=== PATIENT | male | born 1975 | race Caucasian/White ===

== ENCOUNTER 2023-10-11 10:33 | Day surgery (SDC) | payer OTHER ==
[2023-10-11] MEDS: LACTATED RINGERS 1,000 ML IV ONE (10:40)
--- NOTE | 2023-10-11 12:33 | ANESTHESIA ---
Pre-Anesthesia VS, & Labs - Diagnosis screening - Procedure colonoscopy Vital Signs: Temp Pulse Resp BP Pulse Ox O2 Flow Rate 36.6 C 68 17 142/86 H 97 10/11/23 10:58 10/11/23 10:58 10/11/23 10:58 10/11/23 10:58 10/11/23 10:58 Height: 5 ft 11 in Weight (kg): 70.4 kg Body Mass Index: 21.6 BMI Classification: Normal - NPO >8 hours Home Medications and Allergies Latanoprost 0.005% Ophth Drops [Xalatan Ophth Drops] 1 drops EACHEYE DAILY 12/16/21 Allergies/Adverse Reactions: Allergies Allergy/AdvReac Type Severity Reaction Status Date / Time No Known Drug Allergies Allergy Verified 10/11/23 10:54 Anes History & Medical History - Anesthetic History Anesthesia Complications: reports: No previous complications Family history of Anesthesia Complications: Denies Family history of Malignant Hyperthermia: Denies - Medical History Cardiovascular: reports: None Pulmonary: reports: None Gastrointestinal: reports: Colon polyps Urinary: reports: None Neuro: reports: None Musculoskeletal: reports: None Endocrine/Autoimmune: reports: None Skin: reports: None Smoking Status: Never smoker Psychosocial: reports: No issues indicated History of Cancer?: No - Surgical History General: reports: Colonoscopy Eyes Ears Nose Throat (EENT): reports: Other Gynecologic: reports: Other Exam General: Alert, Oriented x3, Cooperative Dental: WNL Mouth Openin Fingerbreadth Neck Mobility: Normal Mallampati classification: I Thyromental Distance: 4-6 cm Respiratory: Lungs clear Cardiovascular: Regular rate Abdomen: Normal bowel sounds Extremities: No clubbing Neurological: Normal gait Mental/Cognitive Status: Alert/Oriented X3 Cognitive Status: Within normal limits Plan Anesthesia Type: Total IV Consent for Procedure(s) Verified and Reviewed: Yes Code Status: Attempt Resuscitation ASA classification: 2-Mild systemic disease Is this case an emergency?: No
--- NOTE | 2023-10-11 12:57 | HISTORY & PHYSICAL EXAMINATION ---
Chief Complaint - Chief Complaint Chief Complaint: here for colonoscopy History of Present Illness - History Obtained From Records Reviewed: yes History obtained from: pt Exam Limitations: none - History of Present Illness HPI Comment/Other: here for colonoscopy for screening. no gi problems or fhx colon ca. 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 HEENT: reports: Other Meds/Allgy - Home Medications Home Medications: Ambulatory Orders Medication Instructions Recorded Confirmed Latanoprost 0.005% Ophth Drops 1 drops EACHEYE DAILY 12/16/21 10/11/23 [Xalatan Ophth Drops] - Allergies Allergies/Adverse Reactions: Allergies Allergy/AdvReac Type Severity Reaction Status Date / Time No Known Drug Allergies Allergy Verified 10/11/23 10:54 Review of Systems - Other Findings Other Findings: 10 pt ros as above otherwise unremarkable Exam - Vital Signs Vital Signs: Vital Signs x48h Temp Pulse Resp BP Pulse Ox 10/11/23 10:58 36.6 C 68 17 142/86 H 97 - Physical Exam General Appearance: positive: No acute distress, Alert Eyes Bilateral: positive: PERRL, EOMI ENT: positive: No signs of dehydration Neck: positive: No JVD, Trachea midline Respiratory: positive: No respiratory distress Cardiovascular: positive: Regular rate & rhythm Abdomen: positive: No distention Neurologic/Psychiatric: positive: Oriented x3 Conclusion/Plan - Problem List (1) Colon cancer screening Conclusion/Plan: plan colonoscopy. parq held and consent obtained
[2023-10-11] MEDS ORDERED: PROPOFOL 500 MG/50 ML 500 MG/50 ML VIAL ONE (13:04)
[2023-10-11] MEDS ORDERED: MIDAZOLAM 2 MG/2 ML VIAL ONE (13:04)
[2023-10-11] MEDS: LACTATED RINGERS 100 ML IV ONE (13:36)
[2023-10-11 13:51] VITALS: BP 118/65; O2SAT 98
--- NOTE | 2023-10-11 15:49 | ANESTHESIA POST OP EVALUATION ---
Anesthesia Post Eval - Post Anesthesia Eval Vitals: Last Vital Signs Temp 36.5 C 10/11/23 13:34 Pulse 63 10/11/23 13:45 Resp 14 10/11/23 13:45 BP 118/65 10/11/23 13:45 Pulse Ox 98 10/11/23 13:45 O2 Flow Rate CV Function Including HR & BP: Stable Pain Control: Satisfactory Nausea & Vomiting: Negative Mental Status: Baseline Respiratory Status: Airway Patent Hydration Status: Satisfactory Anesthesia Complications: None
== END 2023-10-11 10:34 | disposition home or self-care (01) ==
LOC: SDS 10:33
PROVIDERS: ATTEND Surgery
DX: Z12.11 Encounter for screening for malignant neoplasm of colon (principal)
CPT/HCPCS: 45378; J7120

== ENCOUNTER 2023-11-16 22:03 | Emergency (ER) | payer OTHER ==
[2023-11-16 22:22] VITALS: BP 151/91; O2SAT 99
--- NOTE | 2023-11-16 22:41 | ED Physician Documentation ---
History of Present Illness - Stated complaint Stated Complaint: RT HAND SWELLING - Chief complaint Chief Complaint: Ext Problem - History obtained from History obtained from: Patient - Additonal information Additional information: HPI from patient. Patient c/o atraumatic swelling and tenderness of right fourth MCP joint, dorsal surface, since earlier today. There was no injury, no inciting event. Denies h/o similar symptoms. Pain is worse with movement (specifically full flexion), palpation. Patient is right-hand dominant. 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 HEENT: Cataracts, Other - Present Medications Home Medications: Ambulatory Orders Medication Instructions Recorded Confirmed Latanoprost 0.005% Ophth Drops 1 drops EACHEYE DAILY 12/16/21 11/16/23 [Xalatan Ophth Drops] - Allergies Allergies/Adverse Reactions: Allergies Allergy/AdvReac Type Severity Reaction Status Date / Time No Known Drug Allergies Allergy Verified 11/16/23 22:36 - Social History Does the pt smoke?: No Smoking Status: Never smoker Does the pt drink ETOH?: Yes ETOH Use: Beer Does the pt have substance abuse?: No - Immunizations Immunizations are current?: Yes - POLST Patient has POLST: No PD ED PE NORMAL - Vitals Vital signs reviewed: Yes - General General: Alert and oriented X 3, No acute distress, Well developed/nourished - Derm Derm: Normal color, Warm and dry - Extremities Extremities: No edema - Neuro Neuro: No motor deficit, No sensory deficit PD ED PE EXPANDED - Extremities KAI UE/Hands Visual: 1 - swelling (rubbery, no fluctuance, no erythema, no abnormal warmth to touch), tenderness (minimal TTP) Results - Vitals Vitals: Oxygen O2 Source Room air PD Medical Decision Making - ED course Complexity details: considered differential, d/w patient ED course: H+P (particularly appearance on physical exam) s/o ganglion cyst. We discussed options for treatment including drainage (included in this discussion is that, even if attempt at drainage is successful (which can be challenging given the gelatinous makeup of ganglion cysts), recurrence is over 50% and within weeks- months), conservative management (watch/wait, with frequent resolution but may take months, possibly a year of more), and follow up with hand surgery for discussion of other options. Patient elects for drainage at this time. Unfortunately, I was unable to extract any material despite repeated attempts with 23g needle after adequate local anesthesia (using 1% lidocaine without epinephrine after sterile prep). Return precautions reviewed. Advised to contact PCP to inquire about follow up (next available) as well as referral to hand surgeon. Departure - Departure Disposition: 01 Home, Self Care Clinical Impression: Ganglion cyst Condition: Good Instructions: ED Cyst Ganglion Comments: Contact your primary care provider's office when they are next open to arrange for the next available appointment for follow-up/reevaluation. Discharge Date/Time: 11/17/23 00:34
[2023-11-16] MEDS: LIDOCAINE 1% 2 ML VIAL SUBQ STA (23:48)
== END 2023-11-17 00:34 | disposition home or self-care (01) ==
LOC: ED 22:03
DX: M67.441 Ganglion, right hand (principal)
CPT/HCPCS: 64450; 99283